=== PATIENT | female | born 1985 | race Hispanic/Latino ===

== ENCOUNTER 2025-02-17 14:26 | Outpatient (CLI) | payer OTHER | END 2025-02-17 14:27 | disposition home or self-care (01) | LOC: CSHLAB 14:26 | PROVIDERS: ATTEND Family Medicine | DX: Z01.812 Encounter for preprocedural laboratory examination (principal); O34.219 Maternal care for unspecified type scar from previous cesarean delivery | CPT/HCPCS: 85014; 85018; 85049; 86780; 86850; 86900; 86901; 87340 ==

== ENCOUNTER 2025-02-18 05:39 | Inpatient (IN) | payer MEDICAID, OTHER, SELFPAY ==
[2025-02-17 15:34] LABS: Hematocrit 35.4 % (34.9-44.5); Hemoglobin 12.1 g/dL (12.0-15.5); Platelet Count 224 10x3/uL (150-450)
[2025-02-17 16:04] LABS: Hep B Surf Ag Non-Reactive S/CO (NonReactive)
[2025-02-17 16:06] LABS: Syphilis Antibody Index 0.08 S/CO (<1.00 Non-Reactive)
[2025-02-18 06:53] VITALS: BMI 31.4
[2025-02-18] MEDS ORDERED: Meperidine HCl/PF 25 MG (1 mL) VIAL SLOW IVP PRN (06:54)
[2025-02-18] MEDS ORDERED: diphenhydrAMINE 50 MG/ML VIAL IVP PRN (06:54)
[2025-02-18] MEDS ORDERED: Ondansetron PF 4 MG/2 ML Vial IVP PRN ×3 (06:54→07:08)
[2025-02-18] MEDS ORDERED: HYDROmorphone 0.5 MG/0.5 ML SYRINGE SLOW IVP PRN (06:54)
[2025-02-18] MEDS ORDERED: Ketorolac Tromethamine 30 MG (1 mL) VIAL IVP SCH (07:00)
[2025-02-18] MEDS ORDERED: Communication Order-Pharmacy FS SCH (07:00)
[2025-02-18] MEDS ORDERED: Famotidine/PF 20 mg/2ml Vial SLOW IVP PRN (07:08)
[2025-02-18] MEDS ORDERED: Tranexamic Acid 1,000 MG/10 ML VIAL IVP PRN (07:08)
[2025-02-18] MEDS ORDERED: Methylergonovine 0.2 MG/ML VIAL IM PRN ×2 (07:08→09:16)
[2025-02-18] MEDS ORDERED: Carboprost 250 MCG/ML AMP IM PRN (07:08)
[2025-02-18] MEDS ORDERED: hydrALAZINE 20 MG/ML VIAL SLOW IVP PRN ×2 (07:08→09:16)
[2025-02-18] MEDS ORDERED: Bicitra 30 ML UDCUP PO PRN (07:08)
[2025-02-18] MEDS ORDERED: Diphenoxylate HCl/Atropine Tablet PO PRN ×2 (07:08)
[2025-02-18] MEDS ORDERED: Oxytocin 30 units/NS 500 ML 500 ML IV SCH ×2 (07:15→09:30)
[2025-02-18] MEDS: CEFAZOLIN 2 GM VIAL ONE (07:30)
[2025-02-18] MEDS ORDERED: Simethicone Chewable 80 MG TAB PO PRN (09:16)
[2025-02-18] MEDS ORDERED: Boostrix 0.5 ML (Tdap) VIAL (>/=7 yrs of age) IM ONE (09:16)
[2025-02-18] MEDS ORDERED: Lanolin Ointment 7 GM TUBE TOP PRN (09:16)
[2025-02-18] MEDS: Oxytocin 10 UNITS/ML VIAL ONE ×2 (11:59→12:00)
[2025-02-18] MEDS: Ondansetron PF 4 MG/2 ML Vial ONE (11:59)
[2025-02-18] MEDS: Tranexamic Acid 1,000 MG/10 ML VIAL ONE (12:00)
[2025-02-18] MEDS: PHENYLEPHRINE-NS 100 MCG/ML 10 ML SYRINGE ONE (12:00)
[2025-02-18] MEDS: Erythromycin Base 0.5% Oint 1 GM TUBE ONE (12:00)
[2025-02-18] MEDS: diphenhydrAMINE 50 MG/ML VIAL ONE (12:00)
[2025-02-18] MEDS: Methylergonovine 0.2 MG/ML VIAL ONE (12:00)
[2025-02-18] MEDS: Ketorolac Tromethamine 30 MG (1 mL) VIAL IVP PRN (13:12)
[2025-02-18] MEDS: Ferrous Sulfate 325 MG TAB PO SCH (19:42)
[2025-02-18] MEDS: HYDROcodone/Acetaminophen 5/325 mg Tablet PO PRN (20:49)
[2025-02-19] MEDS: HYDROcodone/Acetaminophen 5/325 mg Tablet PO PRN (03:47)
[2025-02-19 04:46] LABS: Hematocrit 31.3 % (34.9-44.5); Hemoglobin 10.4 g/dL (12.0-15.5); Mean Corpuscular Hemoglobin 31.5 pg (27.0-33.0); Mean Corpuscular Volume 94.8 fL (81.6-98.3); Platelet Count 185 10x3/uL (150-450); Red Blood Cell (RBC) Count 3.30 10x6/uL (3.90-5.03); White Blood Cell (WBC) Count 9.19 10x3/uL (3.5-10.5)
[2025-02-19] MEDS: Ibuprofen 800 MG TAB PO SCH (13:57)
[2025-02-20 09:27] VITALS: BP 113/61; TEMP 98.5
== END 2025-02-20 14:35 | disposition home or self-care (01) | DRG 788 ==
LOC: CSHLD 05:39 → CSHPP 11:30
PROVIDERS: ADMIT Family Medicine; ATTEND Family Medicine
PROC: 10D00Z1 Extraction of Products of Conception, Low, Open Approach (ICD-10-PCS; principal; 2025-02-18)
DX: O24.424 Gestational diabetes mellitus in childbirth, insulin controlled (principal); T38.3X6A Underdosing of insulin and oral hypoglycemic [antidiabetic] drugs, initial encounter; Z3A.37 37 weeks gestation of pregnancy; Z37.0 Single live birth; Z91.128 Patient's intentional underdosing of medication regimen for other reason; O36.63X0 Maternal care for excessive fetal growth, third trimester, not applicable or unspecified
CPT/HCPCS: 36415; 36416; 51702; 82951; 85014; 85018; 85027; 85049; 86780; 86850; 86900; 86901; 87340; 99285; J1200; J1885; J2210; J2274; J2405; J2550; J2590; J3010